=== PATIENT | male | born 1995 | race Caucasian/White ===

== ENCOUNTER 2022-07-02 17:59 | Emergency (ER) | payer BC ==
[2022-07-02] MEDS ORDERED: Tetracaine 0.5% PF 4 ML BOT ONE (18:51)
[2022-07-02] MEDS ORDERED: Fluorescein Opthalmic Strip ONE (18:52)
[2022-07-02] MEDS ORDERED: Diazepam 10 MG/2 ML SYRINGE IM SCH (19:30)
== END 2022-07-02 20:06 | disposition home or self-care (01) ==
LOC: CSHERS 17:59
DX: S05.01XA Injury of conjunctiva and corneal abrasion without foreign body, right eye, initial encounter (principal); R20.2 Paresthesia of skin; W22.09XA Striking against other stationary object, initial encounter
CPT/HCPCS: 70450; 72125; 96372; J3360